=== PATIENT | male | born 1985 | race Caucasian/White ===

== ENCOUNTER 2016-07-07 21:28 | Emergency (ER) | payer MEDICAID ==
[~2016-07-07] VITALS: Ht 167.6 cm; Wt 90.7 kg
[~2016-07-07 21:28] MED LIST: CIPR500T5 PO; LORA10TA7 PO; METR500T PO; PRED5TAB PO
--- NOTE | 2016-07-07 21:57 | NUR ---
BB FAMILY, PT AMBULATORY TO ER BED 3 C/O FEVER, CHILLS, GENERALIZED BODY ACHES X1WK. PT AOX4 RR EVEN AND UNLABORED. NO SOB NOTED. NAD NOTED. NO NVD AT THIS TIME. PT GOWNED AND PLACED ON MONITOR WAITING FOR MD DAVID.
--- NOTE | 2016-07-07 22:30 | NUR ---
DR. BHAKTA AT BEDSIDE FOR EVAL.
--- NOTE | 2016-07-07 22:45 | NUR ---
URINE COLLECTED. CALLED LAB FOR [employer] BLASTING.
--- NOTE | 2016-07-07 22:50 | NUR ---
XRAY AT BEDSIDE
[2016-07-07] MEDS ORDERED: LIDOCAINE VISCOUS 2% UD 15 ML UDC ONE (22:59)
[2016-07-07] MEDS ORDERED: HYDROCODONE/APAP 5/325MG 1 EACH TABLET ONE (22:59)
[2016-07-07] MEDS ORDERED: MAG HYDROX/AL HYDROX/SIMETH 30 ML UDC ONE (22:59)
--- NOTE | 2016-07-07 22:59 | NUR ---
IV STARTED ON LEFT AC 18. LABS DRAWN AND SENT TO LAB
[2016-07-07] MEDS ORDERED: MAG HYDROX/AL HYDROX/SIMETH 30 ML UDC PO ONE (23:00)
[2016-07-07] MEDS ORDERED: LIDOCAINE VISCOUS 2% UD 15 ML UDC MM ONE (23:00)
[2016-07-07] MEDS ORDERED: HYDROCODONE/APAP 5/325MG 1 EACH TABLET PO ONE (23:00)
[2016-07-07 23:05] LABS: BASOPHILS # (AUTO) 0.1 /CMM (0.0-0.2); BASOPHILS % (AUTO) 0.7 % (0.0-2.0); EOSINOPHILS # (AUTO) 0.1 /CMM (0.0-0.7); EOSINOPHILS % (AUTO) 0.8 % (0.0-6.0); HEMATOCRIT 45 % (39-51); HEMOGLOBIN 15.4 g/dL (13.5-17.5); LYMPHOCYTES % (AUTO) 18.7 % (20.0-44.0); MEAN CORPUSCULAR HEMOGLOBIN 29 PG (26.0-33.0); MEAN CORPUSCULAR HGB CONC 34 g/dl (31.0-36.0); MEAN CORPUSCULAR VOLUME 85 fL (80-96); MONOCYTES % (AUTO) 12.8 % (2.0-12.0); NEUTROPHILS # (AUTO) 10.6 /CMM (1.8-8.9); PLATELET COUNT (AUTO) 231 /CMM (150-450); RDW COEFFICIENT OF VARIATION 12.6 (11.5-15.0); RED BLOOD CELL COUNT(AUTO) 5.37 MIL/uL (4.5-6.0); WHITE BLOOD COUNT (AUTO) 15.8 K/uL (4.3-11.0)
[2016-07-07 23:08] LABS: APPEARANCE,URINE TURBID (CLEAR); BILIRUBIN,URINE NEGATIVE (NEGATIVE); BLOOD, URINE NEGATIVE Ery/uL (NEGATIVE); COLOR,URINE YELLOW (YELLOW); KETONES,URINE NEGATIVE (NEGATIVE); LEUKOCYTE ESTERASE ,URINE NEGATIVE (NEGATIVE); NITRITE, URINE NEGATIVE (NEGATIVE); PROTEIN,URINE 1+ mg/dl (NEGATIVE); UGLUCOSE NEGATIVE (NEGATIVE)
[2016-07-07 23:12] LABS: BACTERIA,URINE Rare /HPF (None Seen); RBC,URINE 0-2 /HPF (0-2); SQUAMOUS EPITHELIAL CELL,UR Few /HPF (None Seen); WBC,URINE 0-3 /HPF (0-3)
[2016-07-07 23:16] LABS: CALCIUM, SERUM 8.9 mg/dL (8.5-10.1); CARBON DIOXIDE 27 mmol/L (21-32); CHLORIDE 102 mmol/L (98-107); CREATININE 1.2 mg/dL (0.6-1.3); GLUCOSE 96 mg/dL (74-106); POTASSIUM 3.7 mmol/L (3.5-5.1); SODIUM SERUM 138 mmol/L (136-145); UREA NITROGEN, BLOOD 20 mg/dL (7-18)
[2016-07-07 23:21] LABS: ALANINE AMINOTRANSFERASE 44 U/L (12-78); ALBUMIN 3.7 g/dL (3.4-5.0); ALKALINE PHOSPHATASE 70 U/L (46-116); ASPARTATE AMINOTRANSFERASE 15 U/L (15-37); BILIRUBIN,DIRECT 0.1 mg/dL (0.0-0.2); BILIRUBIN,TOTAL 0.6 mg/dL (0.2-1.0); LIPASE 101 U/L (73-393); TOTAL PROTEIN, SERUM 7.9 g/dL (6.4-8.2)
[2016-07-07 23:23] LABS: TROPONIN I < 0.017 ng/mL (0.00-0.056)
--- NOTE | 2016-07-08 00:29 | NUR ---
DR. BHAKTA AT BEDSIDE SPEAKING TO PT REGARDING POC
--- NOTE | 2016-07-08 01:21 | NUR ---
IV removed. Catheter intact and site benign. Pressure and 4x4 applied to site. No bleeding noted. Patient discharged to home in stable condition. Written and verbal after care instructions given. Patient verbalizes understanding of instruction. ambulatory with a steady gait
[2016-07-08 01:24] VITALS: BP 127/68
== END 2016-07-08 01:24 | disposition home or self-care (01) ==
LOC: ER 21:28
DX: R50.9 Fever, unspecified (principal); M79.1 Myalgia; R10.13 Epigastric pain; R51 Headache
CPT/HCPCS: 36415; 71010-TC; 80048-TC; 80076-TC; 81000-TC; 83690-TC; 84484-TC; 85025-TC; 87086-TC; A4606; Z7610

== ENCOUNTER 2017-05-29 22:40 | Emergency (ER) | payer MEDICAID ==
[~2017-05-29] VITALS: Ht 165.1 cm; Wt 90.7 kg
--- NOTE | 2017-05-29 22:40 | NUR ---
BIBSELF C/O INTERMITENT NONRADIATING LEFT SIDED CHEST PAIN 6/10 X 1 WEEK. 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 NO SOB AT THIS TIME. VSS NAD A/OX4 WITH FAMILY AT BEDSIDE. WILL CONTINUE TO MONITOR FOR THE REST OF THE SHIFT
--- NOTE | 2017-05-29 22:53 | NUR ---
ER AT BEDSIDE
[2017-05-29] MEDS ORDERED: ASPIRIN 81 MG TAB.CHEW PO ONE (23:00)
[2017-05-29] MEDS ORDERED: NITROGLYCERIN PACKET 1 GM PACKET TD ONE (23:00)
[2017-05-29] MEDS ORDERED: LORAZEPAM 1 MG TABLET PO ONE (23:00)
[2017-05-29] MEDS ORDERED: LORAZEPAM 1 MG TABLET ONE (23:16)
[2017-05-29] MEDS ORDERED: ASPIRIN 81 MG TAB.CHEW ONE (23:16)
[2017-05-29] MEDS ORDERED: NITROGLYCERIN PACKET 1 GM PACKET ONE (23:16)
[2017-05-29 23:28] LABS: BASOPHILS # (AUTO) 0.1 /CMM (0.0-0.2); BASOPHILS % (AUTO) 0.9 % (0.0-2.0); HEMATOCRIT 44 % (39-51); HEMOGLOBIN 15.5 g/dL (13.5-17.5); LYMPHOCYTES # (AUTO) 3.4 /CMM (0.8-4.8); LYMPHOCYTES % (AUTO) 29.4 % (20.0-44.0); MEAN CORPUSCULAR HGB CONC 35 g/dl (31.0-36.0); MEAN CORPUSCULAR VOLUME 85 fL (80-96); MONOCYTES % (AUTO) 9.1 % (2.0-12.0); NEUTROPHILS # (AUTO) 6.8 /CMM (1.8-8.9); NEUTROPHILS % (AUTO) 58.6 % (43.0-81.0); PLATELET COUNT (AUTO) 174 /CMM (150-450); RDW COEFFICIENT OF VARIATION 12.4 (11.5-15.0); RED BLOOD CELL COUNT(AUTO) 5.24 MIL/uL (4.5-6.0); WHITE BLOOD COUNT (AUTO) 11.6 K/uL (4.3-11.0)
[2017-05-29] MEDS ORDERED: HYDROCODONE/APAP 5/325MG 1 EACH TABLET PO ONE (23:30)
[2017-05-29 23:34] LABS: CALCIUM, SERUM 8.7 mg/dL (8.5-10.1); CARBON DIOXIDE 26 mmol/L (21-32); CHLORIDE 104 mmol/L (98-107); CREATININE 1.2 mg/dL (0.6-1.3); GLUCOSE 113 mg/dL (74-106); POTASSIUM 3.5 mmol/L (3.5-5.1); SODIUM SERUM 140 mmol/L (136-145); UREA NITROGEN, BLOOD 20 mg/dL (7-18)
[2017-05-29] MEDS ORDERED: HYDROCODONE/APAP 5/325MG 1 EACH TABLET ONE (23:38)
[2017-05-29 23:44] LABS: TROPONIN I < 0.017 ng/mL (0.00-0.056)
[2017-05-29 23:47] LABS: ALANINE AMINOTRANSFERASE 62 U/L (12-78); ALBUMIN 4.2 g/dL (3.4-5.0); ALKALINE PHOSPHATASE 48 U/L (46-116); ASPARTATE AMINOTRANSFERASE 11 U/L (15-37); B-TYPE NATRIURETIC PEPTIDE 27 PG/ML (0-125); BILIRUBIN,DIRECT 0.1 mg/dL (0.0-0.2); BILIRUBIN,TOTAL 0.3 mg/dL (0.2-1.0); TOTAL PROTEIN, SERUM 7.3 g/dL (6.4-8.2)
--- NOTE | 2017-05-30 01:58 | NUR ---
DR. ALVAREZ AT BEDSIDE SPEAKING TO PT REGARDING RESULTS.
[2017-05-30 03:04] VITALS: BP 130/82
== END 2017-05-30 03:06 | disposition home or self-care (01) ==
LOC: ER 22:40
DX: R07.89 Other chest pain (principal); R51 Headache; G89.29 Other chronic pain; R10.30 Lower abdominal pain, unspecified; Z79.82 Long term (current) use of aspirin
CPT/HCPCS: 36415 ×2; 71045; 80048; 80076; 83880; 84484 ×2; 85025; 93005; 99285; A4606; Z7610

== ENCOUNTER 2018-04-17 11:21 | Emergency (ER) | payer MEDICAID ==
[~2018-04-17] VITALS: Ht 167.6 cm; Wt 86.6 kg
--- NOTE | 2018-04-17 11:41 | NUR ---
FEVER, SORE THROAT GENERALIZED ACHES X 3 DAYS, TOOK DAYQUILE AT 1000. TEMP 99.3 ON ADMISSION. AOX4, AMB, VSS, RR EVEN AND UNLABORED ON RA. SKIN INTACT, NO ACUTE DISTRESS NOTED. FAMILY AT BEDSIDE. READY FOR EVAL.
--- NOTE | 2018-04-17 11:51 | NUR ---
ELIZABETH HIRSCH AT BEDSIDE FOR EVAL.
--- NOTE | 2018-04-17 12:05 | NUR ---
FLU/STREP SWABS SENT TO STAT LAB
--- NOTE | 2018-04-17 12:48 | NUR ---
CALLED RADIOLOGY FOR CXR
--- NOTE | 2018-04-17 13:00 | NUR ---
CONTACTED RADIOLOGY FOR CXR AGAIN
--- NOTE | 2018-04-17 13:10 | NUR ---
CALLED RADIOLOGY FOR XRAY. STATE THEY ARE WORKING ON IT
--- NOTE | 2018-04-17 13:13 | NUR ---
XRAY AT BEDSIDE
--- NOTE | 2018-04-17 13:45 | NUR ---
Patient is resting comfortably in bed with eyes closed. Easily aroused. VSS
--- NOTE | 2018-04-17 14:18 | NUR ---
Patient discharged to home in stable condition. Written and verbal after care instructions given. Patient verbalizes understanding of instruction.
[2018-04-17 14:20] VITALS: BP 141/89
== END 2018-04-17 14:18 | disposition home or self-care (01) ==
LOC: ER 11:26
DX: J06.9 Acute upper respiratory infection, unspecified (principal); R11.2 Nausea with vomiting, unspecified
CPT/HCPCS: 71045; 87070; 87804 ×2; 87880; 99284; A4606; 86403-TC; 87400

== ENCOUNTER 2020-09-01 11:59 | Emergency (ER) | payer MEDICAID ==
[~2020-09-01] VITALS: Ht 167.6 cm; Wt 70.3 kg
[2020-09-01] MEDS ORDERED: ONDANSETRON HCL/PF 4 MG/2 ML VIAL ONE (12:48)
--- NOTE | 2020-09-01 12:55 | NUR ---
35 years old male walking to er c/o chest pain denies nausea, vomiting.
[2020-09-01] MEDS: ONDANSETRON HCL/PF 4 MG/2 ML VIAL IVP ONE (12:59)
[2020-09-01 13:09] LABS: BASOPHILS # (AUTO) 0.1 K/uL (0.0-0.2); EOSINOPHILS % (AUTO) 1.8 % (0.0-6.0); HEMATOCRIT 44 % (39-51); HEMOGLOBIN 14.9 g/dL (13.5-17.5); LYMPHOCYTES # (AUTO) 2.7 K/uL (0.8-4.8); LYMPHOCYTES % (AUTO) 31.7 % (20.0-44.0); MEAN CORPUSCULAR HGB CONC 34 g/dl (31.0-36.0); MEAN CORPUSCULAR VOLUME 88 fL (80-96); MONOCYTES # (AUTO) 0.7 K/uL (0.1-1.30); MONOCYTES % (AUTO) 8.1 % (2.0-12.0); NEUTROPHILS # (AUTO) 4.9 K/uL (1.8-8.9); NEUTROPHILS % (AUTO) 57.4 % (43.0-81.0); PLATELET COUNT (AUTO) 164 K/uL (150-450); RED BLOOD CELL COUNT(AUTO) 4.97 MIL/uL (4.5-6.0); WHITE BLOOD COUNT (AUTO) 8.5 K/uL (4.3-11.0)
[2020-09-01 13:10] LABS: BILIRUBIN,URINE Negative (NEGATIVE); COLOR,URINE YELLOW (YELLOW); LEUKOCYTE ESTERASE ,URINE Negative (NEGATIVE); NITRITE, URINE Negative (NEGATIVE); PROTEIN,URINE Negative (NEGATIVE); UGLUCOSE Negative (NEGATIVE)
[2020-09-01] MEDS: IV NS 0.9% 1,000 ML BAG IV ONE (13:15)
[2020-09-01 13:18] LABS: BACTERIA,URINE Rare /HPF (None Seen); RBC,URINE 0-2 /HPF (0-2); SQUAMOUS EPITHELIAL CELL,UR Rare /HPF (None Seen); WBC,URINE 0-2 /HPF (0-3)
[2020-09-01] MEDS ORDERED: FLUORESCEIN SODIUM OPHTH 1 EA STRIP ONE (13:21)
[2020-09-01] MEDS: FLUORESCEIN SODIUM OPHTH 1 EA STRIP OP ONE (13:23)
[2020-09-01] MEDS: TETRACAINE HCL 0.5% OPHTALMIC 15 ML BOTTLE OP ONE (13:23)
[2020-09-01 13:26] LABS: CARBON DIOXIDE 26 mmol/L (21-32); CHLORIDE 105 mmol/L (98-107); CREATININE 0.7 mg/dL (0.6-1.3); GLUCOSE 98 mg/dL (74-106); POTASSIUM 3.9 mmol/L (3.5-5.1); SODIUM SERUM 139 mmol/L (136-145); UREA NITROGEN, BLOOD 23 mg/dL (7-18)
[2020-09-01 13:32] LABS: ALANINE AMINOTRANSFERASE 21 U/L (12-78); ALBUMIN 4.1 g/dL (3.4-5.0); ALKALINE PHOSPHATASE 38 U/L (46-116); ASPARTATE AMINOTRANSFERASE 12 U/L (15-37); BILIRUBIN,DIRECT 0.1 mg/dL (0.0-0.2); BILIRUBIN,TOTAL 0.6 mg/dL (0.2-1.0); LIPASE 68 U/L (73-393)
--- NOTE | 2020-09-01 14:18 | NUR ---
patient reassess no acute distress, no nausea vomiting, no sob, cp.
[2020-09-01 15:30] VITALS: BP 132/80
--- NOTE | 2020-09-01 15:31 | NUR ---
condition improved d/c home with instructions after care reviewed understood left er with family ambulatory with steady gait vital stable.
== END 2020-09-01 15:32 | disposition home or self-care (01) ==
LOC: ER 12:04
DX: R07.89 Other chest pain (principal); R10.31 Right lower quadrant pain; H57.89 Other specified disorders of eye and adnexa; Z79.899 Other long term (current) drug therapy
CPT/HCPCS: 36415; 71045-TC; 80048-TC; 80076-TC; 81001; 83690-TC; 84484-TC; 85025-TC; J2405; J7030